=== PATIENT | female | born 1955 | race Caucasian/White ===

== ENCOUNTER → 2018-06-01 | Outpatient (CLI) | payer BC ==
--- NOTE | 2018-06-01 14:29 | Diagnostic Imaging Report ---
INDICATION: Shoulder pain. COMPARISON: None. FINDINGS: Three views of the left shoulder were obtained. There is no fracture, dislocation, or other acute bony abnormality identified. The soft tissues appear unremarkable. No radiopaque foreign bodies identified. The visualized portions of the left lung are clear. IMPRESSION: No acute fractures or dislocations of the left shoulder. Dictated by: Dictated on workstation # [id number]
== END ==
LOC: RAD FS 14:13
PROVIDERS: ATTEND Nurse Practitioner
DX: M25.512 Pain in left shoulder (principal)
CPT/HCPCS: 73030

== ENCOUNTER 2020-03-29 02:37 | Emergency (ER) | payer BC ==
[~2020-03-29] VITALS: Ht 157.5 cm; Wt 70.3 kg
[2020-03-29] MEDS ORDERED: predniSONE 20 MG TAB PO ONE (03:00)
[2020-03-29] MEDS ORDERED: RT-ALBUTEROL/IPRATROPIUM 3 ML (DUONEB) VIAL INH ONE (03:00)
[2020-03-29] MEDS ORDERED: APAP 300 MG/CODEINE 30 MG (TYLENOL #3) TAB PO ONE (03:00)
--- NOTE | 2020-03-29 03:00 | ED Cough/URI ---
General Chief Complaint: Cough/Cold/Flu Symptoms Stated Complaint: FLU LIKE SYMPTOMS History of Present Illness Date Seen by Provider: Mar 29, 2020 Time Seen by Provider: 02:50 Initial Comments 64-year-old female presents with persistent cough which is worse tonight. Having a hard time stopping, history of asthma and has been using her nebulizer with some relief, however she has not used it for greater than 6 hours. Denies any fever chills, chest pain or swelling of extremities. Was seen in urgent ca re recently and told she had a pneumonia and started on amoxicillin. Patient has not had any improvement. Recently tested negative for C-19 Allergies and Home Medications Allergies Coded Allergies: No Known Drug Allergies (Unverified , 03/29/20) Patient Home Medication List Home Medication List Reviewed: Yes Review of Systems Review of Systems Constitutional: No chills, No fever, No malaise, No weakness EENTM: no symptoms reported; No throat pain, No throat swelling Respiratory: cough; No hemoptysis, No orthopnea, No short of breath, No stridor; wheezing Cardiovascular: No chest pain, No edema, No palpitations, No syncope Gastrointestinal: No abdominal pain, No nausea, No vomiting Musculoskeletal: No back pain, No joint pain Skin: No change in color, No lesions, No rash Past Bqdkedz-Jvvipl-Zkzyqn Hx Past Med/Social Hx: Reviewed Nursing Past Med/Soc Hx Patient Social History Alcohol Use: Denies Use Smoking Status: Never a Smoker 2nd Hand Smoke Exposure: No Recent Hopitalizations: No Seasonal Allergies Seasonal Allergies: No Past Medical History Surgeries: Yes Eye Surgery, Gallbladder, Hysterectomy, Tonsillectomy Respiratory: Yes Asthma Cardiac: No Neurological: No Gastrointestinal: No Musculoskeletal: No Endocrine: No HEENT: Yes Cataract Cancer: No Psychosocial: No Integumentary: No Blood Disorders: No Physical Exam Vital Signs - First Documented 03/29/20 02:52 Temp 37.1 Pulse 118 Resp 20 B/P (MAP) 150/85 (106) Pulse Ox 92 O2 Delivery Room Air Capillary Refill : Height: '" Weight: lbs. oz. kg; BMI Method: General Appearance: WD/WN, no apparent distress HEENT: PERRL/EOMI, normal ENT inspection Neck: non-tender, supple Respiratory: chest non-tender, lungs clear, no respiratory distress, no accessory muscle use; No decreased breath sounds, No accessory muscle use, No rales, No rhonchi; wheezing, expiration Cardiovascular: regular rate, rhythm, no edema, no JVD Gastrointestinal: non tender, soft Extremities: normal range of motion, non-tender Neurologic/Psychiatric: alert, normal mood/affect Skin: normal color, warm/dry Progress/Results/Core Measures Suspected Sepsis SIRS Temperature: Pulse: Respiratory Rate: Blood Pressure / Mean: Results/Orders My Orders Orders - MUKUND ROWE DO Chest 1 View Ap/Pa Only (03/29/20 02:52) Albuterol/Ipra Inhalation Soln (Duoneb I (03/29/20 03:00) Prednisone Tablet (Deltasone Tablet) (03/29/20 03:00) Svn Small Volume Nebulizer (03/29/20 02:53) Acetaminophen/Codeine Tablet (Tylenol W/ (03/29/20 03:00) Medications Given in ED Current Medications Medications Dose Ordered Sig/Champ Route Start Time Stop Time Status Last Admin Dose Admin Acetaminophen/ Codeine Phosphate 1 tab ONCE ONCE PO 03/29/20 03:00 03/29/20 03:01 DC 03/29/20 03:00 1 TAB Albuterol/ Ipratropium 3 ml ONCE ONCE INH 03/29/20 03:00 03/29/20 03:01 DC 03/29/20 02:59 3 ML Prednisone 60 mg ONCE ONCE PO 03/29/20 03:00 03/29/20 03:01 DC 03/29/20 03:00 60 MG Vital Signs/I&O 03/29/20 02:52 Temp 37.1 Pulse 118 Resp 20 B/P (MAP) 150/85 (106) Pulse Ox 92 O2 Delivery Room Air Capillary Refill : Diagnostic Imaging Diagonstic Imaging: Xray Plain Films/CT/US/NM/MRI: chest Departure Impression Primary Impression: Cough Additional Impressions: Viral pneumonia Asthma exacerbation Qualified Codes: J45.901 - Unspecified asthma with (acute) exacerbation Disposition: 01 HOME, SELF-CARE Condition: Improved Departure-Patient Inst. Decision time for Depature: 03:13 Referrals: MONA AMBROSE MD (PCP/Family) Primary Care Physician Patient Instructions: Asthma, Adult (DC) Add. Discharge Instructions: Call or follow up with your PCP, Dr. Ambrose in a few days if not improving, ER sooner if worse. Take the following for 2 weeks: 1. Vitamin D 4000iu daily 2. Vitamin C 1000mg twice daily 3. Zinc 100mg daily 4. Aspirin 325mg daily 5. Melatonin 10mg at bedtime Use your inhaler every 4 hours as needed for persistent cough or soa. All discharge instructions reviewed with patient and/or family. Voiced understanding. Scripts Albuterol Sulfate (PROAIR HFA) 1 Puff Puff 2 PUFF IH Q4H for Cough, #1 PUFF 1 Refill 1 PUFF = 90 MCG Prov: MUKUND ROWE DO 03/29/20 Prednisone (Prednisone) 50 Mg Tab 50 MG PO DAILY, #7 TAB Prov: MUKUND ROWE DO 03/29/20 Ivermectin (Ivermectin) 3 Mg Tablet 3 MG PO DAILY PRN, #8 TAB Take 4 tablets po today, repeat taking 4 tablets po on day 3 Prov: MUKUND ROWE DO 03/29/20 MUKUND ROWE DO Mar 29, 2020 03:00
[2020-03-29] MEDS ORDERED: IVER3TAB2 PO (03:04)
[2020-03-29] MEDS ORDERED: PRD50T PO (03:04)
[2020-03-29] MEDS ORDERED: RT-ALBUINH IH (03:04)
[2020-03-29 03:25] VITALS: BP 150/85
--- NOTE | 2020-03-29 07:00 | Diagnostic Imaging Report ---
INDICATION: Cough x3 weeks EXAMINATION: Chest 03/29/2020 FINDINGS: The heart and pulmonary vasculature appear normal. Linear markings at the bases likely atelectasis although mild infiltrate at the right lung base is not excluded. There is no pneumothorax and no effusions. IMPRESSION: 1. Possible infiltrate at the right lung base versus focal atelectasis. Remaining chest unremarkable. Dictated by: Dictated on workstation # [id number]
== END 2020-03-29 03:25 | disposition home or self-care (01) ==
LOC: EDUNIT# 02:37 → ER FS 02:42
DX: R05 Cough (principal); J12.9 Viral pneumonia, unspecified; J45.901 Unspecified asthma with (acute) exacerbation; Z20.822 Contact with and (suspected) exposure to COVID-19
CPT/HCPCS: 71045

== ENCOUNTER 2020-04-04 04:52 | Inpatient (IN) | payer BC ==
[~2020-04-04] VITALS: Ht 157.4 cm; Wt 72.6 kg
[~2020-04-04 04:52] MED LIST: IVER3TAB2 PO; PRD50T PO; RT-ALBUINH IH
--- NOTE | 2020-04-04 05:17 | ED Cough/URI ---
General Chief Complaint: Respiratory Problems Stated Complaint: COVID+, LOW O2 STATS Nursing Triage Note: Patient states that she tested positive for Covid on 04/02/20. Patient states that she was also given a chest xray and it was shown that she had bacterial pneumonia. Patient has recieved IM Rocephin at her providers office 04/02/20 and 04/03/20. Patients main complaint is that she has low SPO2 at home. Sepsis Screen: No Definite Risk (LAMAR ANTONIO DO) History of Present Illness Date Seen by Provider: Apr 04, 2020 Time Seen by Provider: 05:17 Initial Comments 64-year-old female complains that her oxygen was low at home. Patient has a history of asthma. Patient reports that around March 10 she was diagnosed with a pneumonia. That she has had amoxicillin, and 2 rounds of steroids. That on March 29 she noticed that her cough had changed and worsened. At that time she was seen in the ER. She had just recently tested negative for Covid. However due to her the look of her x-rays she was given ivermectin x2 for concerns for Covid. Reports that she was seen again on the by her primary care provider and given a Rocephin shot on the . Patient presents this morning because at home she felt like her oxygen was a little low. She did test positive for Covid on the . She is not complain of any fevers. Her main complaint is a terrible cough and then the change in oxygen this morning. She has generalized malaise and fatigue. She took cough medicine of codeine and Phenergan and a breathing treatment just prior to arrival. (LAMAR ANTONIO DO) Allergies and Home Medications Allergies Coded Allergies: No Known Drug Allergies (Unverified , 03/29/20) Home Medications Albuterol Sulfate 1 Puff Puff, 2 PUFF IH Q4H 1 PUFF = 90 MCG Prescribed by: MUKUND ROWE on 03/29/20303 Ivermectin 3 Mg Tablet, 3 MG PO DAILY PRN Take 4 tablets po today, repeat taking 4 tablets po on day 3 Prescribed by: MUKUND ROWE on 03/29/20303 Prednisone 50 Mg Tab, 50 MG PO DAILY Prescribed by: MUKUND ROWE on 03/29/20303 Patient Home Medication List Home Medication List Reviewed: Yes (LAMAR ANTONIO DO) Review of Systems Review of Systems Constitutional: No chills, No fever Respiratory: cough, short of breath Cardiovascular: No chest pain, No palpitations Gastrointestinal: No abdominal pain, No nausea, No vomiting Musculoskeletal: no symptoms reported Skin: no symptoms reported Psychiatric/Neurological: No Symptoms Reported Hematologic/Lymphatic: No Symptoms Reported Immunological/Allergic: no symptoms reported (LAMAR ANTONIO DO) Past Ideqanx-Wopsic-Rcfugi Hx Past Med/Social Hx: Reviewed Nursing Past Med/Soc Hx (LAMAR ANTONIO DO) Patient Social History Alcohol Use: Denies Use Smoking Status: Never a Smoker 2nd Hand Smoke Exposure: No Recent Infectious Disease Expo: Yes Recent Hopitalizations: No (LAMAR ANTONIO DO) Seasonal Allergies Seasonal Allergies: No (LAMAR ANTONIO DO) Past Medical History Surgeries: Yes Eye Surgery, Gallbladder, Hysterectomy, Tonsillectomy Respiratory: Yes Asthma Cardiac: Yes High Cholesterol, Hypertension Neurological: No Genitourinary: No Gastrointestinal: No Musculoskeletal: No Endocrine: No HEENT: Yes Cataract Cancer: No Psychosocial: No Integumentary: No Blood Disorders: No (LAMAR ANTONIO DO) Physical Exam Vital Signs - First Documented 04/04/20 04:52 Temp 36.2 Pulse 132 Resp 18 B/P (MAP) 163/96 (118) Pulse Ox 94 O2 Delivery Room Air (LEMUEL BAHENA DO) Capillary Refill : Less Than 3 Seconds (LAMAR ANTONIO DO) Height: '" Weight: lbs. oz. kg; 28.00 BMI Method: General Appearance: other (Obviously ill, frequent cough) HEENT: PERRL/EOMI Neck: full range of motion, supple Respiratory: lungs clear; No no respiratory distress, No no accessory muscle use, No respiratory distress; decreased breath sounds (Mild bases); No wheezing Cardiovascular: normal peripheral pulses, tachycardia Gastrointestinal: non tender, soft Neurologic/Psychiatric: alert, normal mood/affect, oriented x 3 Skin: normal color, warm/dry (LAMAR ANTONIO DO) Focused Exam Lactate Level 04/04/20 05:20: Lactic Acid Level 1.59 (LEMUEL BAHENA DO) Lactic Acid Level Laboratory Tests Test 04/04/20 05:20 Lactic Acid Level 1.59 MMOL/L (0.50-2.00) (LEMUEL BAHENA DO) Progress/Results/Core Measures Suspected Sepsis Recent Fever Within 48 Hours: No Infection Criteria Present: Documented Infection New/Unexplained Altered Menta: No Sepsis Screen: No Definite Risk SIRS Temperature: Pulse: 132 Respiratory Rate: 18 Laboratory Tests 04/04/20 05:20: White Blood Count 16.4H Blood Pressure 163 /96 Mean: 118 04/04/20 05:20: Lactic Acid Level 1.59 Laboratory Tests 04/04/20 05:20: Creatinine 0.69, INR Comment 0.9, Platelet Count 496H, Total Bilirubin 0.7 (LAMAR ANTONIO DO) Results/Orders Lab Results Laboratory Tests Test 04/04/20 05:20 Range/Units White Blood Count 16.4 H 4.3-11.0 10^3/uL Red Blood Count 4.06 L 4.35-5.85 10^6/uL Hemoglobin 12.8 11.5-16.0 G/DL Hematocrit 38 35-52 % Mean Corpuscular Volume 94 80-99 FL Mean Corpuscular Hemoglobin 32 25-34 PG Mean Corpuscular Hemoglobin Concent 34 32-36 G/DL Red Cell Distribution Width 12.2 10.0-14.5 % Platelet Count 496 H 130-400 10^3/uL Mean Platelet Volume 9.1 7.4-10.4 FL Immature Granulocyte % (Auto) 0 % Neutrophils (%) (Auto) 69 42-75 % Lymphocytes (%) (Auto) 16 12-44 % Monocytes (%) (Auto) 5 0-12 % Eosinophils (%) (Auto) 9 0-10 % Basophils (%) (Auto) 1 0-10 % Neutrophils # (Auto) 11.4 H 1.8-7.8 X 10^3 Lymphocytes # (Auto) 2.6 1.0-4.0 X 10^3 Monocytes # (Auto) 0.8 0.0-1.0 X 10^3 Eosinophils # (Auto) 1.5 H 0.0-0.3 10^3/uL Basophils # (Auto) 0.1 0.0-0.1 10^3/uL Immature Granulocyte # (Auto) 0.1 0.0-0.1 10^3/uL Neutrophils % (Manual) 63 % Lymphocytes % (Manual) 22 % Monocytes % (Manual) 2 % Eosinophils % (Manual) 12 % Band Neutrophils 1 % Toxic Granulation 2+ Polychromasia SLIGHT Prothrombin Time 12.4 12.2-14.7 SEC INR Comment 0.9 0.8-1.4 Activated Partial Thromboplast Time 27 24-35 SEC D-Dimer 0.62 H 0.00-0.49 UG/ML Sodium Level 141 135-145 MMOL/L Potassium Level 3.2 L 3.6-5.0 MMOL/L Chloride Level 101 98-107 MMOL/L Carbon Dioxide Level 28 21-32 MMOL/L Anion Gap 12 5-14 MMOL/L Blood Urea Nitrogen 12 7-18 MG/DL Creatinine 0.69 0.60-1.30 MG/DL Estimat Glomerular Filtration Rate > 60 BUN/Creatinine Ratio 17 Glucose Level 122 H 70-105 MG/DL Lactic Acid Level 1.59 0.50-2.00 MMOL/L Calcium Level 9.5 8.5-10.1 MG/DL Corrected Calcium 9.6 8.5-10.1 MG/DL Total Bilirubin 0.7 0.1-1.0 MG/DL Aspartate Amino Transf (AST/SGOT) 15 5-34 U/L Alanine Aminotransferase (ALT/SGPT) 10 0-55 U/L Alkaline Phosphatase 102 40-136 U/L Troponin I < 0.30 <0.30 NG/ML C-Reactive Protein 2.58 H <0.50 MG/DL Total Protein 7.3 6.4-8.2 GM/DL Albumin 3.9 3.2-4.5 GM/DL (LEMUEL BAHENA DO) Medications Given in ED Current Medications Medications Dose Ordered Sig/Champ Route Start Time Stop Time Status Last Admin Dose Admin Acetaminophen 650 mg ONCE ONCE PO 04/04/20 05:30 04/04/20 05:31 DC 04/04/20 05:26 650 MG Dexamethasone Sodium Phosphate 10 mg ONCE ONCE IV 04/04/20 05:45 04/04/20 05:46 DC 04/04/20 05:41 10 MG Epinephrine 0.5 ml ONCE ONCE INH 04/04/20 05:45 04/04/20 05:46 DC 04/04/20 05:41 0.5 ML Iohexol 125 ml ONCE ONCE IV 04/04/20 07:00 04/04/20 07:01 DC 04/04/20 07:40 125 ML Sodium Chloride 10 ml NEEDED PRN IV 04/04/20 07:00 04/04/20 07:40 10 ML Sodium Chloride 100 ml ONCE ONCE IV 04/04/20 07:00 04/04/20 07:01 DC 04/04/20 07:40 100 ML Sodium Chloride Hypertonic 15 ml ONCE ONCE IH 04/04/20 05:45 04/04/20 05:46 DC 04/04/20 05:42 4 ML (LEMUEL BAHENA DO) Vital Signs/I&O 04/04/20 04:52 Temp 36.2 Pulse 132 Resp 18 B/P (MAP) 163/96 (118) Pulse Ox 94 O2 Delivery Room Air (LEMUEL BAHENA DO) Vital Signs/I&O Capillary Refill : Less Than 3 Seconds (LAMAR ANTONIO DO) Blood Pressure Mean: 118 ECG Initial ECG Impression Date: Apr 04, 2020 Initial ECG Impression Time: 04:59 Initial ECG Rate: 122 Initial ECG Rhythm: S.Tach Initial ECG Impression: Nonspecific Changes Comment sinus, hr 122, non specific changes, no acute findings (LAMAR ANTONIO DO) Diagnostic Imaging Diagonstic Imaging: Xray Plain Films/CT/US/NM/MRI: chest Comments [facility], [place] NAME: TAYLA BROOKS [facility] REC#: [id number] PT STATUS: REG ER : 1955 PHYSICIAN: LAMAR ANTONIO DO ADMIT DATE: 04/04/20/ER FS Signed Date of Exam:04/04/20 CHEST 1 VIEW AP/PA ONLY Indication: Lower respiratory infection Portable chest 6:05 AM Heart size and pulmonary vascularity are normal. Lungs are clear. There are no effusions or pneumothoraces. IMPRESSION: Negative chest Dictated by: Dictated on workstation # [id number] Dict: 04/04/2046 Trans: 04/04/20 [id number] Interpreted by: LEIDA ZHU MD Electronically signed by: LEIDA ZHU MD 04/04/20 064 Reviewed: Reviewed by Me, Reviewed/Discussed (LAMAR ANTONIO DO) Departure Communication (Admissions) Chest x-ray: No acute cardiopulmonary disease. CTA chest: No findings of pulmonary emboli per radiology report. Patient with Covid pneumonia with hypoxia while sleeping at home. Groundglass opacities presents on CT scan. Patient with persistent tachycardia with conversational dyspnea and hypoxia with mild exertion in the emergency department. Decadron given. Dr. Singh excepts to hospital admission at [facility]. (LEMUEL BAHENA DO) Impression Primary Impression: COVID-19 Additional Impression: Asthma Disposition: ADMITTED INPATIENT Condition: Stable Admissions Decision to Admit Reason: Admit from ER (General) Decision to Admit/Date: Apr 04, 2020 Time/Decision to Admit Time: 08:30 (LEMUEL BAHENA DO) Departure-Patient Inst. Decision time for Depature: 08:35 (LEMUEL BAHENA DO) Referrals: MONA AMBROSE MD (PCP/Family) Primary Care Physician LAMAR ANTONIO DO Apr 04, 2020 05:17 LEMUEL ABHENA DO Apr 04, 2020 08:35
[2020-04-04] MEDS ORDERED: BENZONATATE 100 MG (TESSALON) CAPSULE PO ONE (05:19)
[2020-04-04] MEDS ORDERED: BENZONATATE 100 MG (TESSALON) CAPSULE PO SCH (05:30)
[2020-04-04] MEDS ORDERED: ACETAMINOPHEN 325 MG TABLET PO ONE (05:30)
[2020-04-04] MEDS ORDERED: LACTATED RINGERS 1,000 ML IV SCH (05:30)
[2020-04-04 05:38] LABS: BASOPHILS # (AUTO) 0.1 10^3/uL (0.0-0.1); BASOPHILS % (AUTO) 1 % (0-10); EOSINOPHILS # (AUTO) 1.5 10^3/uL (0.0-0.3); EOSINOPHILS % (AUTO) 9 % (0-10); HEMATOCRIT 38 % (35-52); HEMOGLOBIN 12.8 G/DL (11.5-16.0); LYMPHOCYTES # (AUTO) 2.6 X 10^3 (1.0-4.0); LYMPHOCYTES % (AUTO) 16 % (12-44); MEAN CORPUSCULAR HEMOGLOBIN 32 PG (25-34); MEAN CORPUSCULAR HGB CONC 34 G/DL (32-36); MEAN CORPUSCULAR VOLUME 94 FL (80-99); MEAN PLATELET VOLUME 9.1 FL (7.4-10.4); MONOCYTES # (AUTO) 0.8 X 10^3 (0.0-1.0); MONOCYTES % (AUTO) 5 % (0-12); NEUTROPHILS # (AUTO) 11.4 X 10^3 (1.8-7.8); NEUTROPHILS % (AUTO) 69 % (42-75); PLATELET COUNT 496 10^3/uL (130-400); WHITE BLOOD COUNT 16.4 10^3/uL (4.3-11.0)
[2020-04-04] MEDS ORDERED: RT-HYPERTONIC SALINE 3% 4 ML NEB IH ONE (05:45)
[2020-04-04] MEDS ORDERED: RT-epiNEPHrine (RACEMIC) 2.25% 0.5 ML VIAL INH ONE (05:45)
[2020-04-04 05:46] LABS: INR 0.9 (0.8-1.4); PROTHROMBIN TIME PATIENT 12.4 SEC (12.2-14.7)
[2020-04-04 05:54] LABS: ALANINE AMINOTRANSFERASE 10 U/L (0-55); ALBUMIN 3.9 GM/DL (3.2-4.5); ALKALINE PHOSPHATASE 102 U/L (40-136); BILIRUBIN,TOTAL 0.7 MG/DL (0.1-1.0); BUN/CREATININE RATIO 17; CALCIUM 9.5 MG/DL (8.5-10.1); CARBON DIOXIDE 28 MMOL/L (21-32); CHLORIDE 101 MMOL/L (98-107); CREATININE SERUM 0.69 MG/DL (0.60-1.30); GFR ESTIMATED > 60; GLUCOSE 122 MG/DL (70-105); POTASSIUM 3.2 MMOL/L (3.6-5.0); SODIUM 141 MMOL/L (135-145); TOTAL PROTEIN 7.3 GM/DL (6.4-8.2)
[2020-04-04 05:56] LABS: BAND NEUTROPHILS 1 %; EOSINOPHILS % (MANUAL) 12 %; LYMPHOCYTES % (MANUAL) 22 %; MONOCYTES % (MANUAL) 2 %; NEUTROPHILS % (MANUAL) 63 %; POLYCHROMASIA SLIGHT; TOXIC GRANULATION/VACUOLAZATIO 2+
--- NOTE | 2020-04-04 06:47 | Diagnostic Imaging Report ---
Indication: Lower respiratory infection Portable chest 6:05 AM Heart size and pulmonary vascularity are normal. Lungs are clear. There are no effusions or pneumothoraces. IMPRESSION: Negative chest Dictated by: Dictated on workstation # [id number]
[2020-04-04] MEDS ORDERED: HOLD METFORMIN - RECEIVED CONTRAST 20 ML VIAL IV SCH (07:00)
[2020-04-04] MEDS ORDERED: CATHETER FLUSH 10 ML SYR IV PRN (07:00)
[2020-04-04] MEDS ORDERED: NS 100 ML (IVPB) BAG IV ONE (07:00)
[2020-04-04] MEDS ORDERED: IOHEXOL 350 MG/ML 150 ML (OMNIPAQUE 350) VIAL IV ONE (07:00)
--- NOTE | 2020-04-04 07:54 | Diagnostic Imaging Report ---
PROCEDURE: CT angiography of the chest with contrast. TECHNIQUE: Multiple contiguous axial images were obtained through the chest after uneventful bolus administration of intravenous contrast. 3D reconstructed CTA MIP acquisitions were also performed. Auto Exposure Controls were utilized during the CT exam to meet ALARA standards for radiation dose reduction. INDICATION: Hypoxemia There are some small patchy peripheral infiltrates in both upper lobes. The lower lobes are clear. There are no effusions or pneumothoraces. There are no pulmonary emboli. There is no evidence of right ventricular strain. There are no effusions or pneumothoraces. There is no hilar or mediastinal lymphadenopathy. IMPRESSION: Patchy groundglass infiltrates periphery right upper lobe suspicious for COVID pneumonia. No evidence for pulmonary embolism. Report was faxed to [facility] by tash at 7:53AM. Dictated by: Dictated on workstation # [id number]
[2020-04-04 11:30] VITALS: BP 179/97
--- NOTE | 2020-04-04 12:47 | History & Physical-Hospitalist ---
History of Present Illness Date Seen 04/04/20 Time Seen by a Provider: 12:47 Attending Physician Paulo Marquez MD PCP Kath Gomez MD Referring Physician Date of Admission Apr 04, 2020 at 11:00 Home Medications & Allergies Home Medications Reviewed patient Home Medication Reconciliation performed by pharmacy medication reconciliations corrosion technician and/or nursing. Patients Allergies have been reviewed. Allergies Allergies Coded Allergies No Known Drug Allergies (Unverified03/29/20) Past Zcwybom-Blshud-Mjcyau Hx Past Med/Social Hx: Reviewed Nursing Past Med/Soc Hx Patient Social History Alcohol Use: Denies Use Recreational Drug Use: No Smoking Status: Never a Smoker 2nd Hand Smoke Exposure: No Recent Foreign Travel: No Contact w/other who traveled: No Recent Hopitalizations: No Recent Infectious Disease Expo: Yes Seasonal Allergies Seasonal Allergies: No Past Medical History Surgeries: Eye Surgery, Gallbladder, Hysterectomy, Tonsillectomy Cardiac: High Cholesterol, Hypertension HEENT: Cataract History of Blood Disorders: No Physical Exam Physical Exam Vital Signs Vital Signs - First Documented 04/04/20 04:52 Temp 36.2 Pulse 132 Resp 18 B/P (MAP) 163/96 (118) Pulse Ox 94 O2 Delivery Room Air Capillary Refill : Less Than 3 Seconds Height, Weight, BMI Height: '" Weight: lbs. oz. kg; 28.00 BMI Method: Results Results/Procedures Labs Laboratory Tests 04/04/20 05:20 Patient resulted labs reviewed. PAULO MARQUEZ MD Apr 04, 2020 12:47
[2020-04-04] MEDS ORDERED: ALBUTEROL/IPRATROP (COMBIVENT RESPIMAT) 4 GM INHALER IH SCH (13:00)
[2020-04-04] MEDS ORDERED: ANTACID SUSP 30 ML UDC (MYLANTA) PO PRN (13:45)
[2020-04-04] MEDS ORDERED: MILK OF MAGNESIA 400 MG/5 ML 30 ML UDC PO PRN (13:45)
[2020-04-04] MEDS ORDERED: ACETAMINOPHEN 325 MG TABLET PO PRN (13:45)
[2020-04-04] MEDS ORDERED: HYDROCHLOROTHIAZIDE 12.5 MG (HCTZ) CAP PO NR (13:45)
[2020-04-04] MEDS ORDERED: ONDANSETRON 4 MG/2 ML (SDV) Z0FRAN IV PRN (13:45)
--- NOTE | 2020-04-04 14:24 | History & Physical-Hospitalist ---
History of Present Illness HPI/Chief Complaint Pt is a 64yoCF with a PMH of asthma and HTN who presented to the ER due to hypoxia. She states she has been sick for roughly 1 month and has been seen multiple times and treated for bacterial pneumonia. She has completed a course of azithromycin on 03/10 and then Augmention on 03/28. She was seen by her PCP this week and given Rocephin IM daily for 2 days. She was seen in the ER and told she had "COVID lung" and was started on Ivermectin. COVID testing was not done at that time. She was ultimately tested when she saw her PCP on 04/02 and that was positive for COVID. She states she has been monitoring her oxygen at home and it has dropped to as low at 86% but improves with a breathing treatment. Ultimately family convinced her to come in to be seen and she was admitted for hypoxia. I did call and speak with her PCP regarding admission. Source: patient Exam Limitations: no limitations Date Seen 04/04/20 Time Seen by a Provider: 14:20 Attending Physician Paulo Singh MD PCP Kath Gomez MD Referring Physician Date of Admission Apr 04, 2020 at 11:00 Home Medications & Allergies Home Medications Reviewed patient Home Medication Reconciliation performed by pharmacy medication reconciliations monitor technician and/or nursing. Patients Allergies have been reviewed. Allergies Allergies Coded Allergies No Known Drug Allergies (Unverified03/29/20) Past Otzzxtm-Fbfetd-Aecrhq Hx Past Med/Social Hx: Reviewed Nursing Past Med/Soc Hx Patient Social History Marrital Status: Alcohol Use: Denies Use Recreational Drug Use: No Smoking Status: Never a Smoker 2nd Hand Smoke Exposure: No Recent Foreign Travel: No Contact w/other who traveled: No Recent Hopitalizations: No Recent Infectious Disease Expo: Yes Seasonal Allergies Seasonal Allergies: No Past Medical History Surgeries: Eye Surgery, Gallbladder, Hysterectomy, Tonsillectomy Cardiac: High Cholesterol, Hypertension HEENT: Cataract History of Blood Disorders: No Family History Reviewed Nursing Family Hx Review of Systems Constitutional: No chills, No fever, No malaise EENTM: no symptoms reported Respiratory: cough, phlegm, short of breath Cardiovascular: no symptoms reported Gastrointestinal: No abdominal pain, No nausea, No vomiting Genitourinary: no symptoms reported Musculoskeletal: no symptoms reported Skin: no symptoms reported Psychiatric/Neurological: No Symptoms Reported Physical Exam Physical Exam Vital Signs Vital Signs - First Documented 04/04/20 04:52 Temp 36.2 Pulse 132 Resp 18 B/P (MAP) 163/96 (118) Pulse Ox 94 O2 Delivery Room Air Capillary Refill : Less Than 3 Seconds Height, Weight, BMI Height: '" Weight: lbs. oz. kg; 28.00 BMI Method: General Appearance: No Apparent Distress, WD/WN HEENT: PERRL/EOMI, Moist Mucous Membranes; No Scleral Icterus (L), No Scleral Icterus (R) Neck: Normal Inspection, Supple Respiratory: Lungs Clear, No Accessory Muscle Use, No Respiratory Distress Cardiovascular: Regular Rate, Rhythm, No Murmur Gastrointestinal: Normal Bowel Sounds, Non Tender, Soft Extremity: Normal Capillary Refill, No Calf Tenderness, No Pedal Edema Neurologic/Psychiatric: Alert, Oriented x3 Results Results/Procedures Labs Laboratory Tests 04/05/20 05:31 04/06/20 05:41 Patient resulted labs reviewed. Imaging: Reviewed Imaging Report [facility] [place] [place] NAME: TAYLA BROOKS [facility] REC#: [id number] PT STATUS: REG ER : 1955 PHYSICIAN: LAMAR ANTONIO DO ADMIT DATE: 04/04/20/ER FS Signed Date of Exam:04/04/20 CHEST 1 VIEW AP/PA ONLY Indication: Lower respiratory infection Portable chest 6:05 AM Heart size and pulmonary vascularity are normal. Lungs are clear. There are no effusions or pneumothoraces. IMPRESSION: Negative chest Dictated by: Dictated on workstation # [id number] Dict: 04/04/2046 Trans: 04/04/20 0646 TB [id number] Interpreted by: LEIDA ZHU MD Electronically signed by: LEIDA ZHU MD 04/04/20645 [facility] [place] [place] NAME: TAYLA BROOKS [facility] REC#: [id number] PT STATUS: REG ER : 1955 PHYSICIAN: LAMAR ANTONIO DO ADMIT DATE: 04/04/20/ER FS Signed Date of Exam:04/04/20 CT ANGIO CHEST W PROCEDURE: CT angiography of the chest with contrast. TECHNIQUE: Multiple contiguous axial images were obtained through the chest after uneventful bolus administration of intravenous contrast. 3D reconstructed CTA MIP acquisitions were also performed. Auto Exposure Controls were utilized during the CT exam to meet ALARA standards for radiation dose reduction. INDICATION: Hypoxemia There are some small patchy peripheral infiltrates in both upper lobes. The lower lobes are clear. There are no effusions or pneumothoraces. There are no pulmonary emboli. There is no evidence of right ventricular strain. There are no effusions or pneumothoraces. There is no hilar or mediastinal lymphadenopathy. IMPRESSION: Patchy groundglass infiltrates periphery right upper lobe suspicious for COVID pneumonia. No evidence for pulmonary embolism. Report was faxed to [facility]RN Infection Control by candi at 7:53AM. Dictated by: Dictated on workstation # [id number] Dict: 04/04/20 0749 Trans: 04/04/20 0811 CANDI [id number] Interpreted by: LEIDA ZHU MD Electronically signed by: LEIDA ZHU MD 04/04/20 0811 Assessment/Plan Admission Diagnosis Hypoxia from COVID19 Admission Status: Inpatient Order (span 2 midnights) Reason for Inpatient Admission: see below, failed outpatient management Assessment and Plan COVID19 Hypoxia Currently on room air Seems symptoms have been ongoing for roughly the last month, outside the window for Remdesivir Continue Decadron EUA status of Convalescent plasma discussed, pt agrees MAT protocol Lovenox Asthma, mild persistent MAT protocol No acute exacerbation HTN Was in ER so did not take home meds Resume HCTZ DVT ppx: PAULO Mccall MD Apr 04, 2020 14:24
[2020-04-04] MEDS ORDERED: NS IV 500 ML 500 ML IV SCH (14:30)
[2020-04-04] MEDS: ALBUTEROL/IPRATROP (COMBIVENT RESPIMAT) 4 GM INHALER IH SCH ×2 (14:49→18:46)
[2020-04-04] MEDS ORDERED: PROM5SYR PO (15:16)
[2020-04-04] MEDS ORDERED: ESTR0.9T PO (15:16)
[2020-04-04] MEDS ORDERED: CELE-63 PO (15:16)
[2020-04-04] MEDS ORDERED: ALBU2.5V4 NEB (15:16)
[2020-04-04] MEDS ORDERED: FISH1CAP15 PO (15:16)
[2020-04-04] MEDS ORDERED: CETI10TA49 PO (15:16)
[2020-04-04] MEDS ORDERED: ROSU10TA28 PO (15:16)
[2020-04-04] MEDS ORDERED: RT-ALBUINH INH (15:16)
[2020-04-04] MEDS ORDERED: POTA10TA36 PO (15:16)
[2020-04-04] MEDS ORDERED: VALS1TAB75 PO (15:16)
[2020-04-04] MEDS ORDERED: PANT40TA52 PO (15:16)
--- NOTE | 2020-04-04 15:17 | NUR ---
SPOKE WITH PT (CALLED ROOM PHONE) AND WENT THRU THE EXT MED HISTORY TO COMPLETE THE MED REC PT WAS ABLE TO NAME ALL HER MEDICATIONS WELL WHEN/HOW SHE TAKES EACH ON 03-29-2020 PREDNISONE 50MG #7/7DS WAS FILLED BUT ACCORDING TO THE PT SHE DID NOT FINISH THE THERAPY AND QUIT TAKING EARLIER THIS WEEK OTC MEDS: FISH OIL ZYRTEC
[2020-04-04] MEDS: cefTRIAXone FOR IV USE 1,000 MG in WATER (STERILE) FOR INJECTION 10 ML IV SCH (15:25)
[2020-04-04] MEDS: ENOXAPARIN 40 MG/0.4 ML (LOVENOX) SYR SQ SCH (15:25)
[2020-04-04] MEDS ORDERED: RT-ALBUTEROL SULF 2.5 MG/3 ML PRE-MIX VIAL IH PRN (15:45)
[2020-04-04] MEDS ORDERED: RT-ALBUTEROL SULF 2.5 MG/3 ML PRE-MIX VIAL INH PRN (15:45)
[2020-04-04] MEDS ORDERED: RT-ALBUTEROL INHALER HFA (VENTOLIN HFA) 18 GM IH PRN (16:00)
[2020-04-04 16:25] VITALS: BP 173/98
[2020-04-04] MEDS: CELECOXIB 100 MG (CeleBREX) CAP PO SCH (17:13)
[2020-04-04] MEDS ORDERED: hydrALAZINE (APESOLINE) 20 MG/ML VIAL IV PRN (19:45)
[2020-04-04 20:05] VITALS: BP 173/87
[2020-04-04] MEDS: ROSUVASTATIN 10 MG (CRESTOR) TABLET PO SCH (20:26)
[2020-04-04] MEDS: LORATADINE (CLARITIN) 10 MG TAB PO SCH (20:26)
[2020-04-04] MEDS: BENZONATATE 100 MG (TESSALON) CAPSULE PO PRN (20:26)
[2020-04-04] MEDS: ESTROGENS CONJUGATED 0.45 MG (PREMARIN) TAB PO SCH (20:26)
[2020-04-04] MEDS: PROMETHAZINE 6.25 MG/5 ML SYRUP (PHENERGAN) 5 ML UDC PO PRN (20:51)
[2020-04-04] MEDS ORDERED: NON-FORMULARY MEDICATION 1 EA EA (Celecoxib 200 MG) PO SCH (21:00)
[2020-04-04] MEDS ORDERED: ESTROGENS CONJUGATED 0.9 MG PO SCH (21:00)
[2020-04-04] MEDS ORDERED: NON-FORMULARY MEDICATION 1 EA EA (Cetirizine HCl (Zyrtec) 10 MG) PO SCH (21:00)
[2020-04-05] VITALS (8 sets, daily range): BP systolic 132–172; BP diastolic 74–97
[2020-04-05] MEDS: MELATONIN 3 MG TABLET PO PRN (01:05)
[2020-04-05] MEDS: PROMETHAZINE 6.25 MG/5 ML SYRUP (PHENERGAN) 5 ML UDC PO PRN (01:05)
[2020-04-05] MEDS: ALBUTEROL/IPRATROP (COMBIVENT RESPIMAT) 4 GM INHALER IH SCH ×4 (01:42→21:43)
[2020-04-05 06:04] LABS: BASOPHILS % (AUTO) 0 % (0-10); EOSINOPHILS # (AUTO) 0.4 10^3/uL (0.0-0.3); EOSINOPHILS % (AUTO) 3 % (0-10); HEMATOCRIT 35 % (35-52); HEMOGLOBIN 11.4 g/dL (11.5-16.0); LYMPHOCYTES % (AUTO) 20 % (12-44); MEAN CORPUSCULAR HEMOGLOBIN 31 pg (25-34); MEAN CORPUSCULAR HGB CONC 33 g/dL (32-36); MEAN CORPUSCULAR VOLUME 95 fL (80-99); MEAN PLATELET VOLUME 9.7 fL (9.0-12.2); MONOCYTES # (AUTO) 1.1 10^3/uL (0.0-1.0); MONOCYTES % (AUTO) 7 % (0-12); NEUTROPHILS # (AUTO) 10.5 10^3/uL (1.8-7.8); NEUTROPHILS % (AUTO) 70 % (42-75); PLATELET COUNT 444 10^3/uL (130-400)
[2020-04-05 06:23] LABS: ALBUMIN 3.6 GM/DL (3.2-4.5); CHLORIDE 102 MMOL/L (98-107); POTASSIUM 3.4 MMOL/L (3.6-5.0); SODIUM 139 MMOL/L (135-145)
[2020-04-05 06:24] LABS: CALCIUM 9.3 MG/DL (8.5-10.1)
[2020-04-05 06:25] LABS: GLUCOSE 99 MG/DL (70-105); TOTAL PROTEIN 6.7 GM/DL (6.4-8.2)
[2020-04-05 06:27] LABS: BILIRUBIN,TOTAL 0.6 MG/DL (0.1-1.0); CARBON DIOXIDE 25 MMOL/L (21-32)
[2020-04-05 06:29] LABS: ALKALINE PHOSPHATASE 80 U/L (40-136); CREATININE SERUM 0.75 MG/DL (0.60-1.30); GFR ESTIMATED > 60
[2020-04-05 06:30] LABS: BUN/CREATININE RATIO 17
[2020-04-05 06:32] LABS: ALANINE AMINOTRANSFERASE 10 U/L (0-55)
[2020-04-05] MEDS: VALSARTAN 160 MG (DIOVAN) TABLET PO SCH (08:15)
[2020-04-05] MEDS: HYDROCHLOROTHIAZIDE 12.5 MG (HCTZ) CAP PO SCH (08:15)
[2020-04-05] MEDS: OMEGA 3 (FISH OIL) 1000 MG CAP PO SCH (08:15)
[2020-04-05] MEDS: CELECOXIB 100 MG (CeleBREX) CAP PO SCH ×2 (08:16→17:56)
[2020-04-05] MEDS: KCL 10 MEQ TAB (MICRO K) PO SCH (08:16)
[2020-04-05] MEDS: BENZONATATE 100 MG (TESSALON) CAPSULE PO PRN ×2 (08:16→14:25)
[2020-04-05] MEDS: PANTOPRAZOLE 40 MG (PROTONIX) TAB PO SCH (08:16)
[2020-04-05] MEDS ORDERED: VALSARTAN PO SCH (09:00)
[2020-04-05] MEDS ORDERED: NON-FORMULARY MEDICATION 1 EA EA (Potassium Chloride 10 MEQ) PO SCH (09:00)
[2020-04-05] MEDS ORDERED: NON-FORMULARY MEDICATION 1 EA EA (Fish Oil/Dha/Epa (Fish Oil 1,200 mg Fish Oil) 1 EACH) PO SCH (09:00)
[2020-04-05] MEDS ORDERED: [UNRECOGNIZED DRUG - OTHER] PO SCH (09:00)
[2020-04-05] MEDS ORDERED: HYDROCHLOROTHIAZIDE PO SCH (09:00)
[2020-04-05] MEDS ORDERED: HYDROCHLOROTHIAZIDE 12.5 MG (HCTZ) CAP PO SCH (09:00)
--- NOTE | 2020-04-05 10:42 | Progress Note - Hospitalist ---
Subjective HPI/CC On Admission Date Seen by Provider: Apr 05, 2020 Time Seen by Provider: 10:41 Pt is a 64yoCF with a PMH of asthma and HTN who presented to the ER due to hypoxia. She states she has been sick for roughly 1 month and has been seen multiple times and treated for bacterial pneumonia. She has completed a course of azithromycin on 03/10 and then Augmention on 03/28. She was seen by her PCP this week and given Rocephin IM daily for 2 days. She was seen in the ER and told she had "COVID lung" and was started on Ivermectin. COVID testing was not done at that time. She was ultimately tested when she saw her PCP on 04/02 and that was positive for COVID. She states she has been monitoring her oxygen at home and it has dropped to as low at 86% but improves with a breathing treatment. Ultimately family convinced her to come in to be seen and she was admitted for hypoxia. I did call and speak with her PCP regarding admission. Subjective/Events-last exam Pt reports doing better today. Night was better but still significant coughing though improved from when she was home. Was able to get some sleep. Sats have maintained in the 90s on room air. Focused Exam Lactate Level 04/04/20 05:20: Lactic Acid Level 1.59 Objective Exam Vital Signs Vital Signs Date Time Temp Pulse Resp B/P (MAP) Pulse Ox O2 Delivery O2 Flow Rate FiO2 04/05/20 10:13 94 Room Air 04/05/20 07:55 36.9 88 22 134/81 (98) Capillary Refill : Less Than 3 Seconds General Appearance: No Apparent Distress, WD/WN Respiratory: Lungs Clear, No Accessory Muscle Use, No Respiratory Distress Cardiovascular: Regular Rate, Rhythm, No Murmur Neurologic/Psychiatric: Alert, Oriented x3 Results/Procedures Lab Laboratory Tests 04/05/20 05:31 Patient resulted labs reviewed. Imaging: Reviewed Imaging Report Assessment/Plan Assessment and Plan Assess & Plan/Chief Complaint COVID19 Hypoxia Currently on room air, doing well Seems symptoms have been ongoing for roughly the last month, outside the window for Remdesivir Continue Decadron Convalescent plasma hopefully to arrive today MAT protocol Lovenox Asthma, mild persistent MAT protocol No acute exacerbation HTN Continue home meds DVT ppx: Lovenox PAULO MARQUEZ MD Apr 05, 2020 10:42
[2020-04-05] MEDS: guaiFENesin/DM (ROBITUSSIN DM) 10 ML UDC PO PRN ×2 (15:07→21:42)
[2020-04-05] MEDS: ENOXAPARIN 40 MG/0.4 ML (LOVENOX) SYR SQ SCH (15:08)
[2020-04-05] MEDS: cefTRIAXone FOR IV USE 1,000 MG in WATER (STERILE) FOR INJECTION 10 ML IV SCH (15:08)
[2020-04-05] MEDS: LORATADINE (CLARITIN) 10 MG TAB PO SCH (21:42)
[2020-04-05] MEDS: ESTROGENS CONJUGATED 0.45 MG (PREMARIN) TAB PO SCH (21:42)
[2020-04-05] MEDS: ROSUVASTATIN 10 MG (CRESTOR) TABLET PO SCH (21:42)
[2020-04-06] MEDS: PROMETHAZINE 6.25 MG/5 ML SYRUP (PHENERGAN) 5 ML UDC PO PRN (00:02)
[2020-04-06] MEDS: BENZONATATE 100 MG (TESSALON) CAPSULE PO PRN ×2 (00:02→09:47)
[2020-04-06] MEDS: MELATONIN 3 MG TABLET PO PRN (00:02)
[2020-04-06 00:35] VITALS: BP 154/74
[2020-04-06] MEDS: ALBUTEROL/IPRATROP (COMBIVENT RESPIMAT) 4 GM INHALER IH SCH ×2 (02:55→09:55)
[2020-04-06] MEDS: guaiFENesin/DM (ROBITUSSIN DM) 10 ML UDC PO PRN ×2 (04:07→09:47)
[2020-04-06 06:08] LABS: HEMOGLOBIN 11.8 g/dL (11.5-16.0); MEAN PLATELET VOLUME 9.5 fL (9.0-12.2); WHITE BLOOD COUNT 13.2 10^3/uL (4.3-11.0)
[2020-04-06 06:30] LABS: CHLORIDE 102 MMOL/L (98-107); POTASSIUM 3.3 MMOL/L (3.6-5.0); SODIUM 141 MMOL/L (135-145)
[2020-04-06 06:31] LABS: CALCIUM 9.5 MG/DL (8.5-10.1); GLUCOSE 105 MG/DL (70-105)
[2020-04-06 06:33] LABS: CARBON DIOXIDE 25 MMOL/L (21-32)
[2020-04-06 06:35] LABS: CREATININE SERUM 0.83 MG/DL (0.60-1.30); GFR ESTIMATED > 60
[2020-04-06 06:36] LABS: BUN/CREATININE RATIO 13
[2020-04-06 08:00] VITALS: BP 150/74
[2020-04-06] MEDS: VALSARTAN 160 MG (DIOVAN) TABLET PO SCH (08:25)
[2020-04-06] MEDS: PANTOPRAZOLE 40 MG (PROTONIX) TAB PO SCH (08:26)
[2020-04-06] MEDS: OMEGA 3 (FISH OIL) 1000 MG CAP PO SCH (08:26)
[2020-04-06] MEDS: HYDROCHLOROTHIAZIDE 12.5 MG (HCTZ) CAP PO SCH (08:26)
[2020-04-06] MEDS: CELECOXIB 100 MG (CeleBREX) CAP PO SCH (08:26)
[2020-04-06] MEDS: KCL 10 MEQ TAB (MICRO K) PO SCH (08:27)
[2020-04-06] MEDS ORDERED: PROM5SYR PO (10:26)
[2020-04-06] MEDS ORDERED: BENZ100C18 PO (10:26)
--- NOTE | 2020-04-06 10:32 | Discharge Inst-Simple/Standard ---
Discharge Inst-Standard Discharge Medications New, Converted or Re-Newed RX: Transmitted to Pharmacy Patient Instructions/Follow Up Plan of Care/Instructions/FU: Please continue to take your medications as written. Please follow up with Dr Gomez next week to follow up this hospital stay. Activity as Tolerated: Yes Discharge Diet: No Restrictions Return to The Hospital For: Chest pain, shortness of breath, fever, confusion, worsening cough, if you feel you are getting worse. PAULO MARQUEZ MD Apr 06, 2020 10:32
--- NOTE | 2020-04-06 10:48 | Discharge Summary ---
Diagnosis/Chief Complaint Date of Admission Apr 04, 2020 at 11:00 Date of Discharge Discharge Date: Apr 06, 2020 Admission Diagnosis Hypoxia from COVID19 Primary Care Kath Gomez MD Discharge Summary Discharge Physical Exam Allergies: Coded Allergies: No Known Drug Allergies (Unverified , 03/29/20) Vitals & I&Os Vital Signs Date Time Temp Pulse Resp B/P (MAP) Pulse Ox O2 Delivery O2 Flow Rate FiO2 04/06/20 09:55 96 Room Air 04/06/20 08:00 35.0 87 20 150/74 (99) General Appearance: No Apparent Distress, WD/WN Respiratory: Lungs Clear, No Respiratory Distress Cardiovascular: Regular Rate, Rhythm, No Murmur Gastrointestinal: Normal Bowel Sounds, Non Tender, Soft Neurologic/Psychiatric: Alert, Oriented x3 Hospital Course patient was admitted with hypoxia due to COVID-19. She was treated with D ecadron, and convalescent plasma. She was outside of the window for Remdesivir. She did well and was able to be titrated off of oxygen completely prior to discharge. She was discharged home in stable and improved condition to follow-up with his primary care provider. I discussed this with her PCP Dr Gomez as well. Labs (last 24 hrs) Laboratory Tests 04/06/20 05:41: White Blood Count 13.2H, Red Blood Count 3.82, Hemoglobin 11.8, Hematocrit 37, Mean Corpuscular Volume 96, Mean Corpuscular Hemoglobin 31, Mean Corpuscular Hemoglobin Concent 32, Red Cell Distribution Width 12.3, Platelet Count 465H, Mean Platelet Volume 9.5, Sodium Level 141, Potassium Level 3.3L, Chloride Level 102, Carbon Dioxide Level 25, Anion Gap 14, Blood Urea Nitrogen 11, Creatinine 0.83, Estimat Glomerular Filtration Rate > 60, BUN/Creatinine Ratio 13, Glucose Level 105, Calcium Level 9.5 Microbiology 04/04/20 Gram Stain - Final, Complete 04/04/20 Sputum Culture - Final, Complete Usual upper respiratory madalyn Patient resulted labs reviewed. Pending Labs Imaging: Reviewed Imaging Report Discussion & Recommendations Discharge Planning: >30 minutes discharge planning Discharge Home Medications: Active Scripts Active Tessalon Perles (Benzonatate) 100 Mg Capsule 100 Mg PO TID PRN Prometh-Codein 6.25-10 mg/5 ml (Promethazine HCl/Codeine) 5 Ml Syrup 5 Ml PO Q6H PRN Reported Zyrtec (Cetirizine HCl) 10 Mg Tablet 10 Mg PO HS Fish Oil 1,200 mg Fish Oil (Fish Oil/Dha/Epa) 1 Each Capsule 1 Each PO DAILY Potassium Chloride 10 Meq Tab.er.prt 10 Meq PO DAILY Premarin (Estrogens, Conjugated) 0.9 Mg Tablet 0.9 Mg PO HS Rosuvastatin Calcium 10 Mg Tablet 10 Mg PO HS Valsartan-Hctz 160-12.5 mg Tab (Valsartan/Hydrochlorothiazide) 1 Each Tablet 1 Ea PO DAILY Pantoprazole Sodium 40 Mg Tablet.dr 40 Mg PO DAILY Albuterol Sulfate 2.5 Mg/3 Ml Vial.neb 3 Ml NEB Q8H PRN Proventil Hfa (Albuterol Sulfate) 6.7 Gm Hfa.aer.ad 2 Puff INH Q4H PRN Celecoxib 200 Mg Capsule 200 Mg PO BID Instructions to patient/family Please see electronic discharge instructions given to patient. PAULO MARQUEZ MD Apr 06, 2020 10:48
--- NOTE | 2020-04-06 13:24 | NUR ---
TAYLA BROOKS demonstrates understanding of discharge instructions and accurately returns instructions upon questioning. Copy of Post-Discharge Instructions and Medication Discharge Instructions given to patient. TAYLA BROOKS is able to manage continuing needs after discharge. Patients belongings returned to patient. Skin dry and intact; no breakdown noted. Patient discharged from 431-1 on at . TAYLA BROOKS left floor via wc, accompanied by staff.
== END 2020-04-06 13:26 | disposition home or self-care (01) | DRG 179 ==
LOC: EDUNIT# 04:52 → ER FS 04:55 → 4TH 11:00
PROVIDERS: ADMIT Family Medicine; ATTEND Family Medicine
PROC: XW13325 Transfusion of Convalescent Plasma (Nonautologous) into Peripheral Vein, Percutaneous Approach, New Technology Group 5 (ICD-10-PCS; principal; 2020-04-05)
DX: U07.1 COVID-19 (principal); E78.00 Pure hypercholesterolemia, unspecified; I10 Essential (primary) hypertension; J45.909 Unspecified asthma, uncomplicated; R09.02 Hypoxemia; Z73.0 Burn-out
CPT/HCPCS: 36415; 71045; 71275; 80048; 80053; 82728; 83605; 83615; 84145; 84484; 85007; 85025; 85027; 85379; 85610; 85730; 86141; 86900; 86901; 87070; 87205; 94640; 94664; 94760

== ENCOUNTER → 2020-05-07 | Outpatient (CLI) | payer BC ==
[~2020-05-07] MED LIST changes: +ALBU2.5V4 NEB; +BENZ100C18 PO; +CELE-63 PO; +CETI10TA49 PO; +ESTR0.9T PO; +FISH1CAP15 PO; +PANT40TA52 PO; +POTA10TA36 PO; +PROM5SYR PO; +ROSU10TA28 PO; +RT-ALBUINH INH; +RT-ALBUTEROL SULF 2.5 MG/3 ML PRE-MIX VIAL INH ONE; +VALS1TAB75 PO
== END ==
LOC: RT 08:00
PROVIDERS: ATTEND Family Medicine
DX: Z20.822 Contact with and (suspected) exposure to COVID-19 (principal)
CPT/HCPCS: 94060; 94726; 94729

== ENCOUNTER → 2020-06-19 | Outpatient (CLI) | payer BC ==
[~2020-06-19] MED LIST changes: +CATHETER FLUSH 10 ML SYR IV PRN; +HOLD METFORMIN - RECEIVED CONTRAST 20 ML VIAL IV SCH; +IOHEXOL 350 MG/ML 100 ML (OMNIPAQUE 350) VIAL IV ONE; +NS 100 ML (IVPB) BAG IV ONE; -RT-ALBUTEROL SULF 2.5 MG/3 ML PRE-MIX VIAL INH ONE
[2020-06-19 11:07] LABS: BUN/CREATININE RATIO 17; CREATININE SERUM 0.83 MG/DL (0.60-1.30); GFR ESTIMATED > 60
--- NOTE | 2020-06-19 14:28 | Diagnostic Imaging Report ---
PROCEDURE: CT chest with contrast only. TECHNIQUE: Multiple contiguous axial images were obtained through the chest after administration of intravenous contrast. Auto Exposure Controls were utilized during the CT exam to meet ALARA standards for radiation dose reduction. DATE: June 19, 2020. COMPARISON: April 04, 2020 CT chest. INDICATION: 89-cby[age]-year female. Shortness of breath. FINDINGS: There is a 3 mm calcified right lower lobe granuloma on axial image 104. There is no identified noncalcified pulmonary nodule. There is no lung mass. There is no focal airspace consolidation. There is no pneumothorax. There is no pleural effusion. The central airways are patent. There is no bronchiectasis. There is no peripheral honeycombing. There is no groundglass lung attenuation. The heart is not enlarged. There is no pericardial effusion. There is no identified central or segmental pulmonary embolus. There is no abnormally enlarged mediastinal, hilar, or axillary lymph node which meets CT size criteria for adenopathy. The patient is status post cholecystectomy. The imaged portions of the upper abdomen are unremarkable. There is no identified acute bony abnormality. IMPRESSION: CT CHEST. 1. Interval resolution of previously noted areas of lung opacification which likely was previously infectious or inflammatory in etiology. 2. No current acute cardiopulmonary abnormality. Dictated by: Dictated on workstation # [id number]
== END ==
LOC: RAD FS 10:32
PROVIDERS: ATTEND Nurse Practitioner Family
DX: R06.02 Shortness of breath (principal)
CPT/HCPCS: 36415; 71260; 82565; 84520

== ENCOUNTER 2020-10-14 13:28 | Outpatient (RCR) | payer BC ==
[~2020-10-14 13:28] MED LIST changes: -CATHETER FLUSH 10 ML SYR IV PRN; -HOLD METFORMIN - RECEIVED CONTRAST 20 ML VIAL IV SCH; -IOHEXOL 350 MG/ML 100 ML (OMNIPAQUE 350) VIAL IV ONE; -NS 100 ML (IVPB) BAG IV ONE
== END 2021-01-12 | disposition home or self-care (01) ==
PROVIDERS: ATTEND Otolaryngology Otolaryngology/Facial Plastic Surgery
DX: R49.0 Dysphonia (principal); Z86.16 Personal history of COVID-19; Z87.09 Personal history of other diseases of the respiratory system

== ENCOUNTER 2021-05-25 05:38 | Outpatient (CLI) | payer BC ==
[~2021-05-25] VITALS: Ht 157.5 cm; Wt 70.0 kg
[~2021-05-25 05:38] MED LIST changes: -POTA10TA36 PO; +POTA10TA37 PO
[2021-05-25] MEDS ORDERED: ESTR0.5T PO (11:34)
[2021-05-25] MEDS ORDERED: FLUT12AE4 IH (11:34)
[2021-05-25] MEDS ORDERED: ASPI-999 PO (11:34)
[2021-05-25] MEDS ORDERED: MONT-40 PO (11:34)
[2021-05-25] MEDS ORDERED: CYCL10TA25 PO (11:34)
== END 2021-05-25 11:35 | disposition home or self-care (01) ==
LOC: PREOP 05:38
PROVIDERS: ATTEND Surgery
DX: Z01.818 Encounter for other preprocedural examination (principal)

== ENCOUNTER 2021-06-01 09:50 | Day surgery (SDC) | payer BC ==
[~2021-06-01] VITALS: Ht 158 cm; Wt 70.0 kg
[~2021-06-01 09:50] MED LIST changes: +ASPI-999 PO; +CYCL10TA25 PO; +ESTR0.5T PO; +FLUT12AE4 IH; +MONT-40 PO
[2021-06-01] MEDS ORDERED: LACTATED RINGERS 1,000 ML IV STA (09:53)
[2021-06-01] MEDS ORDERED: HURRICAINE EXT TUBE (BENZOCAINE) XX PRN (10:00)
[2021-06-01 10:10] VITALS: BP 136/81
--- NOTE | 2021-06-01 10:28 | Progress Note-Pre Operative ---
Pre-Operative Progress Note H&P Reviewed The H&P was reviewed, patient examined and no changes noted. Time Seen by Provider: 10:26 Date H&P Reviewed: Jun 01, 2021 Time H&P Reviewed: 10: Pre-Operative Diagnosis: Hx of Gastric ulcer, Chronic Gastritis, Screening colonoscopy LUBA DEL TORO DO Jun 01, 2021 10:28
[2021-06-01] MEDS ORDERED: PROPOFOL INJECTION 50 ML IV ONE (10:56)
[2021-06-01] MEDS ORDERED: MIDAZOLAM 2 MG/2 ML (VERSED) VIAL ONE (10:56)
[2021-06-01 11:30] VITALS: BP 111/73
--- NOTE | 2021-06-01 11:34 | Progress Note-Post Operative ---
Post-Operative Progess Note Surgeon (s)/Interlocking Pavement Installer (s) Surgeon LUBA DEL TORO DO Interlocking Pavement Installer: Mariana Mendoza, MSIII Pre-Operative Diagnosis Hx of Gastric ulcer, Chronic Gastritis, Screening colonoscopy Post-Operative Diagnosis Gastritis Gastric polyp Hiatal hernia diverticula int hemorrhoids Procedure & Operative Findings Date of Procedure 06/01/21 Procedure Performed/Findings EGD with bx Colonoscopy PROCEDURE NOTE: After informed consent was obtained, the patient was brought to the endoscopy suite, placed in bed in left lateral decubitus position. She was administered IV sedation by the PULLBOAT ENGINEER who then monitored vitals the entire time, heart rate, blood pressure and pulse ox and the scope was inserted down the mouth through the esophagus into the stomach. On the way down, noted some mild esophagitis, took a picture, pushed into the stomach, pushed past the antrum into the duodenum. Duodenum looked good. Pulled back and did a biopsy of antrum (which looked inflamed) no signs of an ulcer. Then retroflexed the scope, saw small hiatal hernia, took a picture of this and then pulled the scope into the GE junction, took another picture of the hiatal hernia and then did a biopsy of the GE junction. Pushed the scope back into the stomach, suctioned all the air out of the stomach. At this point pulled the scope up the esophagus and out the mouth. Switched camera, switched gloves, went down below, started the colonoscopy. Pushed all the way into about 140 cm to get all the way to cecum, took a picture of the appendiceal orifice, noted the ileocecal valve and then slowly withdrew the scope, insufflating to look circumferentially at the ruiz starting in thececum, up the ascending colon to the hepatic flexure, then down the transverse colon, splenic flexure, into the descending colon, down into the sigmoid; where I saw some diverticula and took a picture of them. Finally into the rectum, retroflexed in the rectal vault, saw some minimal internal hemorrhoids and took a picture of this. The patient tolerated the procedure and she recovered in the endoscopy suite. Anesthesia Type IV sedation by PULLBOAT ENGINEER Estimated Blood Loss Estimated blood loss (mL): scant Specimens/Packing Specimens Removed antral bx Polyp bx GE jxn bx LUBA DEL TORO DO Jun 01, 2021 11:34
[2021-06-01 11:35] VITALS: BP 117/68
--- NOTE | 2021-06-01 11:35 | Endoscopy Discharge Instruct ---
Endo Procedure/Findings Findings 1.: Polyp (Stomach), Gastritis 2.: Hiatal Hernia 3.: Diverticulosis 4.: Internal Hemorrhoids Discharge Instructions - Activity: You might feel a little sleepy until tomorrow. This is due to the medicine you received to relax you. Until tomorrow, you should: NOT drive a car, operate machinery or power tools. NOT drink any alcoholic beverages. NOT make any important decisions or sign importortant papers. Do not return to work until tomorrow, unless otherwise instructed. Resume previous activities tomorrow. Diet: Start by taking liquids. If you tolerate liquids, advance to solid food. 1.: EGD in 3 years 2.: Colonscopy in 10 years Notify Physician - If you experience excessive bleeding, unusual abdominal pain, fever, or chest pain, contact your doctor immediately. LUBA DEL TORO DO Jun 01, 2021 11:35
[2021-06-01 11:50] VITALS: BP 117/82
[2021-06-01 11:57] VITALS: BP 117/82
--- NOTE | 2021-06-01 14:26 | Anesthesia-General Post-Op ---
MAC Patient Condition Mental Status/LOC: Same as Preop Cardiovascular: Satisfactory Nausea/Vomiting: Absent Respiratory: Satisfactory Pain: Controlled Complications: Absent Post Op Complications Complications None Follow Up Care/Instructions Patient Instructions None needed. Anesthesiology Discharge Order Discharge Order Patient is doing well, no complaints, stable vital signs, no apparent adverse anesthesia problems. No complications reported per nursing. JEWELS CASTANEDA CRNA Jun 01, 2021 14:26
== END 2021-06-01 12:15 | disposition home or self-care (01) ==
LOC: ENDO 09:50
PROVIDERS: ATTEND Surgery
DX: Z12.11 Encounter for screening for malignant neoplasm of colon (principal); K29.70 Gastritis, unspecified, without bleeding; K31.7 Polyp of stomach and duodenum; K21.00 Gastro-esophageal reflux disease with esophagitis, without bleeding; K44.9 Diaphragmatic hernia without obstruction or gangrene; K57.30 Diverticulosis of large intestine without perforation or abscess without bleeding; K64.8 Other hemorrhoids; Z87.891 Personal history of nicotine dependence; Z80.0 Family history of malignant neoplasm of digestive organs; Z87.11 Personal history of peptic ulcer disease

== ENCOUNTER → 2022-01-18 | Outpatient (CLI) | payer MEDICARE, OTHER ==
[~2022-01-18] MED LIST changes: +ALBU8.5H6 IH; +POTA-177 PO; -POTA10TA37 PO; -RT-ALBUINH IH
--- NOTE | 2022-01-18 15:43 | Diagnostic Imaging Report ---
INDICATION: Right-sided radiculopathy. TECHNIQUE: AP, lateral along with lateral flexion and lateral extension views of the cervical spine. CORRELATION STUDY: None. FINDINGS: Cervical spine alignment is anatomic. There is good range of motion with flexion and extension. No abnormal subluxation. Vertebral body heights overall are fairly well maintained. 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 Very slight asymmetric disc space narrowing at the C5-C6 level. Posterior elements appear to be normal in alignment. Fusion across C2-C3 facets. The visualized lung apices are unremarkable. IMPRESSION: 1. Very mild cervical spondylosis. There appears to be normal and good range of motion with flexion and extension of the cervical spine. Dictated by: Dictated on workstation # [id number]
== END ==
LOC: RAD FS 14:01
PROVIDERS: ATTEND Nurse Practitioner
DX: M47.22 Other spondylosis with radiculopathy, cervical region (principal)
CPT/HCPCS: 72050

== ENCOUNTER → 2023-01-14 | Outpatient (CLI) | payer MEDICARE, OTHER ==
[~2023-01-14] MED LIST changes: -CELE-63 PO; +CELE-91 PO; -ESTR0.5T PO; +ESTR0.5T2 PO
--- NOTE | 2023-01-14 13:49 | Diagnostic Imaging Report ---
CT CARDIAC CALCIUM SCORE INDICATION: Hyperlipidemia. Cardiovascular risk stratification. COMPARISON: None available. TECHNIQUE: Limited CT of the chest was performed without contrast per the coronary calcium protocol. FINDINGS: The total coronary calcium score is 0. Lungs are clear. No pericardial or pleural effusion. Normal caliber thoracic aorta. IMPRESSION: 1. No incidental abnormality. 2. Total coronary artery calcium score 0. Dictated by: Dictated on workstation # [id number]
== END ==
LOC: RAD FS 08:10
PROVIDERS: ATTEND Family Medicine
DX: E78.5 Hyperlipidemia, unspecified (principal)
CPT/HCPCS: 75571

== ENCOUNTER → 2023-01-25 | Outpatient (CLI) | payer MEDICARE | LOC: CARD 11:30 | PROVIDERS: ATTEND Family Medicine | DX: I08.0 Rheumatic disorders of both mitral and aortic valves (principal); I10 Essential (primary) hypertension | CPT/HCPCS: 93306 ==